=== PATIENT | female | born 1965 | race Caucasian/White ===

== ENCOUNTER → 2023-10-06 13:54 | Outpatient (REF) | payer OTHER, SELFPAY ==
[2023-10-06 15:20] LABS: Free T3 3.18 pg/ml (2.77-5.27); Free T4 1.79 ng/dl (0.78-2.19)
[2023-10-06 15:34] LABS: TSH 0.33 uIU/ml (0.47-4.68)
[2023-10-08 21:33] LABS: Thyroid Peroxidase Ab (TPO) 10.2 IU/mL (0.0-9.0)
== END ==
LOC: REG 13:54
PROVIDERS: ATTENDING PHYSICIAN Nurse Practitioner Family
DX: E03.8 Other specified hypothyroidism (principal)
CPT/HCPCS: 36415; 84432; 84439; 84443; 84481; 86376; 86800

== ENCOUNTER → 2024-09-18 11:49 | Outpatient (REF) | payer OTHER, SELFPAY ==
[2024-09-18 13:14] LABS: Free T4 1.37 ng/dl (0.78-2.19); Prolactin 6.7 ng/ml (3.0-18.6)
[2024-09-18 13:27] LABS: TSH 2.88 uIU/ml (0.47-4.68)
== END ==
LOC: REG 11:49
PROVIDERS: ATTENDING PHYSICIAN Internal Medicine Endocrinology, Diabetes & Metabolism
DX: E23.7 Disorder of pituitary gland, unspecified (principal); E03.8 Other specified hypothyroidism
CPT/HCPCS: 36415; 84146; 84439; 84443